=== PATIENT | male | born 1965 | race Caucasian/White ===

== ENCOUNTER 2020-10-11 10:13 | Outpatient (CLI) | payer OTHER, SELFPAY ==
--- NOTE | 2020-10-11 11:15 | NEURO_ITS ---
Impression: # Complains of left upper extremity weakness. # Bilateral mild Carpal Tunnel Syndrome. # Needle/EMG exam revealed left upper extremity proximal muscles with decreased motor unit potentials involving deltoid, triceps and biceps muscles ,but no fibs,or myotonia. #higher involvement needs to be ruled out.. Nerve Conduction Studies Anti Sensory Summary Table Stim Site NR Peak (ms) P-T Amp (?V) Site1 Site2 Delta-P (ms) Dist (cm) Marshal (m/s) Left Median Anti Sensory (2-3nd Digit) Wrist 3.2 27.9 Wrist 2-3nd Digit 3.2 14.0 44 Wrist 3.2 27.0 Wrist 2-3nd Digit 3.2 14.0 44 Right Median Anti Sensory (2-3nd Digit) Wrist 3.3 57.7 Wrist 2-3nd Digit 3.3 14.0 42 Wrist 3.3 25.9 Wrist 2-3nd Digit 3.3 14.0 42 Left Radial Anti Sensory (Base 1st Digit) Wrist 2.1 26.2 Wrist Base 1st Digit 2.1 0.0 Right Radial Anti Sensory (Base 1st Digit) Wrist 3.5 10.7 Wrist Base 1st Digit 3.5 0.0 Left Ulnar Anti Sensory (5th Digit) Wrist 2.5 29.9 Wrist 5th Digit 2.5 14.0 56 Right Ulnar Anti Sensory (5th Digit) Wrist 2.6 20.4 Wrist 5th Digit 2.6 14.0 54 Motor Summary Table Stim Site NR Onset (ms) O-P Amp (mV) Site1 Site2 Delta-0 (ms) Dist (cm) Marshal (m/s) Left Median Motor (Abd Poll Brev) Wrist 4.1 3.1 Elbow Wrist 5.0 29.0 58 Elbow 9.1 2.1 Right Median Motor (Abd Poll Brev) Wrist 4.5 2.7 Elbow Wrist 4.9 29.0 59 Elbow 9.4 2.6 Left Ulnar Motor (Abd Dig Minimi) Wrist 2.6 6.8 A Elbow Wrist 5.3 30.0 57 A Elbow 7.9 5.8 Right Ulnar Motor (Abd Dig Minimi) Wrist 2.7 6.8 A Elbow Wrist 5.3 31.0 58 A Elbow 8.0 6.1 F Wave Studies NR F-Lat (ms) L-R F-Lat (ms) Left Median (Mrkrs) (Abd Poll Brev) 28.98 0.40 Right Median (Mrkrs) (Abd Poll Brev) 29.38 0.40 Left Ulnar (Mrkrs) (Abd Dig Min) 29.99 0.24 Right Ulnar (Mrkrs) (Abd Dig Min) 29.74 0.24 EMG Side Muscle Nerve Root Ins Act Fibs Amp Dur Recrt Comment Right 1stDorInt Ulnar C8-T1 Nml Nml Nml Nml Nml Right Ext Indicis Radial (Post Int) C7-8 Nml Nml Nml Nml Nml Right Ext Digitorum Radial (Post Int) C7-8 Nml Nml Nml Nml Nml Right BrachioRad Radial C5-6 Nml Nml Nml Nml Nml Right PronatorTeres Median C6-7 Nml Nml Nml Nml Nml Right Abd Poll Brev Median C8-T1 Nml Nml Nml Nml Nml Left 1stDorInt Ulnar C8-T1 Nml Nml Nml Nml Nml Left Ext Indicis Radial (Post Int) C7-8 Nml Nml Nml Nml Nml Left Ext Digitorum Radial (Post Int) C7-8 Nml Nml Nml Nml Nml Left BrachioRad Radial C5-6 Nml Nml Nml >12ms Reduced Left PronatorTeres Median C6-7 Nml Nml Nml Nml Nml Left Abd Poll Brev Median C8-T1 Nml Nml Nml Nml Nml Left ABD Dig Min Ulnar C8-T1 Nml Nml Nml Nml Nml Left Biceps Musculocut C5-6 Nml Nml Nml >12ms Reduced Left Triceps Radial C6-7-8 Nml Nml Nml >12ms Reduced Left Deltoid Axillary C5-6 Nml Nml Nml >12ms Reduced MTDD
== END 2020-10-11 10:14 | disposition home or self-care (01) ==
PROVIDERS: Visit Provider Orthopaedic Surgery
DX: G56.03 Carpal tunnel syndrome, bilateral upper limbs (principal)
CPT/HCPCS: 95886; 95911

== ENCOUNTER 2020-10-19 06:41 | Outpatient (CLI) | payer OTHER, SELFPAY ==
--- NOTE | ~2020-10-19 | MR_ITS ---
EXAMINATION: MR cervical spine wo con DATE: 10/19/2020 08:02 INDICATION: Neck pain. TECHNIQUE: Magnetic resonance imaging (MRI) of the cervical spine was performed without intravenous c ontrast. Sequences included sagittal T2-weighted FSE, sagittal STIR FSE, sagittal T1-weighted FSE, ax ial MERGE, and axial T2-weighted FSE. COMPARISON: None FINDINGS: There is kyphosis of cervical spine. Vertebral body heights are normal. There is mildly dec reased disc height at C3-C4 and moderately decreased disc height at C4-C5. The spinal cord signal int ensity is normal. The following disc levels are specifically discussed: C2-C3: The disc does not extend beyond the endplate margin. There is mild bilateral uncovertebral petey nt osteoarthritis. There is severe right and mild left facet joint osteoarthritis. There is mild righ t neural foraminal stenosis. There is no central canal stenosis. C3-C4: The disc does not extend beyond the endplate margin. There is moderate bilateral uncovertebral joint osteoarthritis. There is mild right and severe left facet joint osteoarthritis. There is mild right and moderate left neural foraminal stenosis. There is mild central canal stenosis. C4-C5: The disc is bulging. There is severe bilateral uncovertebral joint osteoarthritis. There is mi ld right and moderate left facet joint osteoarthritis. There is moderate bilateral neural foraminal s tenosis. There is moderate central canal stenosis with ventral and dorsal indentation of spinal cord. C5-C6: The disc is bulging. There is mild bilateral uncovertebral joint osteoarthritis. There is no f acet joint osteoarthritis. There is no neural foraminal stenosis. There is mild central canal stenosi s. C6-C7: There is a central protrusion. There is mild bilateral uncovertebral joint osteoarthritis. The re is mild bilateral facet joint osteoarthritis. There is no neural foraminal stenosis. There is no c entral canal stenosis. C7-T1: There is a central extrusion. There is no uncovertebral joint osteoarthritis. There is severe right and moderate left facet joint osteoarthritis. There is no neural foraminal stenosis. There is n o central canal stenosis. IMPRESSION: 1. Moderate cervical spondylosis. Reviewed, dictated and finalized at location A. OR ASIC ENGINEER
== END 2020-10-19 06:42 | disposition home or self-care (01) ==
PROVIDERS: Visit Provider Orthopaedic Surgery
DX: M47.892 Other spondylosis, cervical region (principal)
CPT/HCPCS: 72141

== ENCOUNTER → 2023-08-09 08:31 | Outpatient (CLI) | payer OTHER, SELFPAY ==
--- NOTE | ~2023-08-09 | XR_ITS ---
XR lumbar spine min 4V 08/09/2023 08:59 Indication: Low back pain Procedure: 5 views lumbar spine Comparison: No prior studies for comparison. Findings: There is mild dextroscoliosis. Vertebral body heights are maintained. Pedicles intact. Ther e is disc narrowing at L4-5 and L5-S1. There is grade 1 spondylolisthesis at L5-S1. There is vacuum p henomena at L5-S1. No acute fracture or traumatic malalignment. There is facet hypertrophy at L4-5 an d L5-S1. Impression: 1: Moderate-severe lower lumbar spondylosis with dextroscoliosis. Reviewed, dictated and finalized at location A. Impression: 1: Moderate-severe lower lumbar spondylosis with dextroscoliosis.
== END ==
PROVIDERS: PCP Chiropractor; Visit Provider Chiropractor
DX: M47.896 Other spondylosis, lumbar region (principal)
CPT/HCPCS: 72110

== ENCOUNTER 2025-02-23 07:36 | Outpatient (CLI) | payer MEDICARE, OTHER, SELFPAY ==
--- NOTE | ~2025-02-23 | CT_ITS ---
CT of the Abdomen and Pelvis: Indication: Positive colorectal cancer screening test Technique: 2.5 mm axial scans were obtained through the abdomen and pelvis following intravenous adm inistration of 100 cc of Omnipaque 350. Dose reduction technique was used on this scan by utilizing a utomated exposure control and iterative reconstruction technique. The dose-length product (DLP) was 1 040.16 mGy-cm. Findings: Scans through the lung bases are unremarkable. The liver, spleen, pancreas, gallbladder, adrenals and kidneys are within normal limits. No evidence of aortic aneurysm. No lymphadenopathy. No bowel obstruction. Questionable 2.4 cm polypoid mass intraluminally at the rectum versus adherent stool (sagittal image [id number]), axial image 155). There is mild haziness in the central mesentery with shotty lymph nodes, compatible with mesenteric panniculitis. Images through the pelvis were performed. Urinary bladder unremarkable. Prostate gland minimally prom inent. No ascites. Bilateral L5 pars interarticularis defects are present, with minimal grade 1 anterolisthesis and adva nced degenerative spondylitic change at L5-S1. Impression: Questionable 2.4 cm polypoid mass in the rectum versus adherent stool, as detailed above. Colonoscopy advised with direct inspection. Mesenteric panniculitis. Reviewed, dictated and finalized at location . Impression: Questionable 2.4 cm polypoid mass in the rectum versus adherent stool, as vivek led above. Colonoscopy advised with direct inspection. Mesenteric panniculitis.
--- OUTSIDE RECORDS SUMMARY | 2025-02-23 07:42 | XMS_ITS | Clinical Summary ---
Author Organization [facility] Address [address] [place] [address] Care Team Providers Care Home Organizer Name Role Phone Unavailable Primary Care Provider Unavailabl e Source Comments [facility] [facility],non-owned Affiliates and Associated Physician Practices is amultiple site organization consisting of ambulatory clinics and hospital sitesin [place], [place], [place] and [place]. This disclosure is being madepursuant to the Care Everywhere program and may not contain all information available regarding this patient. Last updated 18.[facility] [employer] Immunizations Name Administration Dates Next Due INFLUENZA VACCINE, QUADR. (F LUZONE; FLULAVAL; FLUARIX; AFLURIA QUADRIVALENT; 6MO+), 0.5 ML (IIV4) 08/07/2020 Social History Tobacco Use Types Packs/Day Years Used Date Smoking Tobacco: Never Assessed Sex and Gender Information Value Date Recorded Sex Assigned at Not on file Gender Identity Not on file Sexual Orientation Not on file Plan of Treatment Health Maintenance Due Date Last Done Comments COLOGUARD (AGES 45-75) - COL ON CA SCREENING 1966 COLON MONITORING 1966 COLONOSCOPY - COLON CA SCREENING 1966 CT COLONOGRAPHY - COLON CA SCREENING 1966 Colorectal Cancer Screening 1966 FIT - COLON CA SCREENING 1966 FLEX SIG - COLON CA SCREENING 1966 LIPID TESTING 1966 HIV SCREENING 1981 HEPATITIS C SCREENING 08/24/1984 DTAP/TDAP/TD VACCINES (1 - Tdap) 1985 HEPATITIS B VACCINE (1 of 3 - 19+ 3-dose series) 1985 PNEUMOCOCCAL VACCINE 50+ (1 of 1 - PCV) 2016 ZOSTER VACCINE (1 of 2) 2016 COVID-19 VACCINE (2023-2 5 season) 2024 DEPRESSION SCREENING 11/17/2024 INFLUENZA VACCINE (Season Ended) 2025 08/07/20 20 HIB VACCINE Aged Out No longer eligi ble based on patient's age to complete this topic HPV VACCINE Aged Out No longer eligi ble based on patient's age to complete this topic MENINGOCOCCAL (Group B) VACC INE SHARED DECISION-MAKING Aged Out No longer eligibl e based on patient's age to complete this topic MENINGOCOCCAL GROUPS A/C/Y/W VACCINE Aged Out No longer eligible b ased on patient's age to complete this topic PNEUMOCOCCAL VACCINE Aged Out No long er eligible based on patient's age to complete this topic
--- OUTSIDE RECORDS SUMMARY | 2025-02-23 07:42 | XMS_ITS ---
Author Organization [facility], [facility] Address [address] [place] [address] [address] [place] [address] Care Team Providers Care Genetic Physician Name Role Phone Mynor BARRIOS MD, [facility] Primary Care Provider Un available Tarsha Pennington Unavailable [phone] scan Encounters Encounter Location Date Provider Diagnosis [facility], [address] [place] [address] 02/15/2025 Tarsha Pennington Plan Of Treatment No Information Progress Notes * Mynor ARIZMENDI LDOB: [birth year] (59 yo M)Acc No.[id number]:02/15/2025 Patient: Brayden MALCOLMMynor :1965 A ge:59 Y S ex:Male Address:[facility] [address], [place], [address] * true * Date: Generated for Printi ng/Faxing/eTransmitting on: 0 02/23/2025 07:41 AM CDT
--- OUTSIDE RECORDS SUMMARY | 2025-02-23 07:42 | XMS_ITS ---
Author Organization [facility] Address [address] [place] [address] Dr. [address] [place] [address] Care Team Providers Care Garage Supervisor Name Role Phone Mynor BARRIOS MD, [facility] Primary Care Provider Un available Tarsha Pennington Unavailable [phone] Allergies No Known Allergies REASON FOR VISIT Procedure Consult: Colonoscopy, Postiive Cologuard Medications Medication SIG (Take, Route, Frequency, Duration) Notes Start Date End Date Status Zoloft Active Memantine HCl-Donepezil HCl Active Losartan Potassium-HCTZ Active metFORMIN HCl Active OTC/Vitamins Vit D Active Social History Tobacco Use: Social History Observation Description Date Details (start date - stop date) Never Smoker NA - NA Tobacco Control (Standard) Question Answer Notes Tobacco use: Nonsmoker Problems Problem Type SNOMED Code ICD Code Onset Dates Problem Status W/U Status Risk Notes Problem Alzheimer's disease (55965423) Alzheimers disease with early onset (G30.0) Active confirmed Encounters Encounter Location Date Provider Diagnosis [facility] [address] [place] [address] [address]. [address] [place] [address] 02/11/2025 Tarsha Pennington Positive colorectal cancer screening using Cologuard test R19.5 and Alzheimers disease with early onset G30.0 Assessments Encounter Date Diagnosis (ICD Code) Assessment Notes Treatment Notes Treatment Clinical Notes Section Notes 02/11/2025 Positive colorectal cancer screening using Cologuard test (ICD-10 - R19.5) Positive Cologuard test. Denies alarm symptoms. No family history of colon cancer or colon polyps. Discussed positive Cologuard with patient and alternatives for further evaluation. They have decided to complete a CT scan to rule out an obvious colon malignancy. Discussed that CT scan does not have the same sensitivity or accuracy to detect colon polyps. However, they have decided that the patient will not undergo colonscopy or CT colonography related to sedation risk and completing colonoscopy prep. 02/11/2025 Alzheimers disease with early onset (ICD-10 - G30.0) Continue to follow with Dr. Harvey's office. 02/11/2025 Other Mynor and his family verbalized understanding of the plan and recommendations. All questions answered. The patient may call our office for new GI complaints or alarm symptoms as needed. Plan Of Treatment Treatment Notes Assessment Notes Positive colorectal cancer s creening using Cologuard test Discussed positive Cologuard with patien t and alternatives for further evaluation. They have decided to complete a CT scan to rule out an obvious colon malignancy. Discussed that CT scan does not have the same sensitivity or accuracy to detect colon polyps. However, they have decided that the patient will not undergo colonscopy or CT colonography related to sedation risk and completing colonoscopy prep. Alzheimers disease with early onset Cont inue to follow with Dr. Harvey's office. Other Mynor and his fami ly verbalized understanding of the plan and recommendations. All questions answered. The patient may call our office for new GI complaints or alarm symptoms as needed. Pending Test Test Name Order Date CT Abdomen/Pelvis w/ IV & Oral Contrast 02/11/2025 Next Appt Details Follow Up: prn, Reason: Progress Notes * Mynor ARIZMENDI LDOB: [birth year] (59 yo M)Acc No.[id number]:02/11/2025 Patient: Mynor PICKARD Provider: MANJIT Mcdowell :1965 A ge:59 Y S ex:Male Date:02/11/2025 Address:[facility] [address], [facility] Pcp:Maribel Lowe MD, Subjective: * Chief Complaints: * P rocedure Consult: ColonoscopyPostiive Cologuard * HPI: H PI: Mynor Arizmendi is a 59-year-old male who presents for new patient office visit. He is accompanied by his (NAY) and daughter. He has a medical history of early onset Alzheimer's, diabetes, and hypertension. His PCP ordered a Cologuard and results were positive. His is concerned about sedation for the procedure as he woke up combative from a neck fusion a few years ago. She states completing the Cologuard was a challenge and feels that the colonoscopy prep will also be difficult for him to complete. He is having daily formed bowel movements. He has rare diarrhea. He denies abdominal pain, constipation, bloating, hematochezia, melena, mucus in stool, rectal pain or pressure. He denies upper GI symptoms of nausea, vomiting, dysphagia and acid reflux. His weight and appetite are stable. He continues to follow-up with Dr. Harvey's office for Alzheimer's. He continues to get routine MRI and PET scans at [place]. * ROS: G I Bleeding: Melena N o. H ematochezia N o. H ematemesis?No. A nemia N o. G I-Stomach: Nausea/Emesis N o. P ain N o. P UD N o.?Anorexia N o. G I-Esophageal: Dysphagia N o. O dynophagia N o. C hest Pain?No. G ER Sx N o. G I-Liver/GB: Jaundice N o. H epatitis N o. G allstones N o. P ancreatitis N o. G I-Colon: Colitis/IBS N o. D iarrhea N o. C onstipation?No. H emorrhoids N o. G eneral/Constitutional: Fever N o. C hills N o. W eight Loss N o.? S kin: Rash N o. P ruritus N o. I cterus N o. P hotosensitivity N o. E NT: Diplopia N o. V isual Loss N o. T innitus N o. V ertigo N o. D eafness N o. P oor Dentition N o. H ematology: Easy Bruising N o. H emophilia N o. H ematologic Malignancy N o. L ymphadenopathy N o. H istory of Petechia N o. A nemia?No. C ardiovascular: Palpitations N o. S yncope N o. P ND N o.?PALOMINO N o. O rthopnea N o. C hest Pain N o. R espiratory: Cough N o. S putum Production N o. H emoptysis?No. W heezing N o. T B N o. S OB N o. N eurologic: Stroke N o. S eizure Disorder N o. T remor N o. P aralysis N o. S yncope N o. G enitourinary: Dysuria N o. P olyuria N o. I ncontinence N o. R enal Failure N o. H ematuria N o. M usculoskeletal: Joint Pain N o. S welling N o. S tiffness N o. M uscle Weakness N o. M yalgia N o. E ndocrine: Thyroid Disease N o. D iabetes N o. P olyphagia?No. P olydipsia N o. P sychiatric: Delusions N o. H allucinations N o. S uicidal Ideations N o. A llergy/Immunology: Hives N o. C hronic Sinusitis N o. H istory of Anaphylaxis N o. * Medical History: * Surgical History: N yessi Fusion * Hospitalization/Major Diagno stic Procedure: D enies Past Hospitalization * Family History: N on-Contributory. Patient denies family history of colon cancer or colon polyps. * Social History: T obacco Use: T obacco Control (Standard) T obacco use: N onsmoker D rugs/Alcohol: D o you Drink Alcohol?: No. Drugs: No. Do you Smoke Marijuana?: No. * Medications: T akingZoloft Memantine HCl-Donepezil HCl Losartan Potassium-HCTZ metFORMIN HCl OTC/Vitamins , Notes to Pharmacist: Vit DMedication List reviewed and reconciled with the patientTaking Zoloft Taking Memantine HCl-Donepezil HCl Taking Losartan Potassium-HCTZ Taking metFORMIN HCl Taking OTC/Vitamins , Notes to Pharmacist: Vit DMedication List reviewed and reconciled with the patient * Allergies: N .K.D.A.no[Allergies Verified] Objective: * Vitals: * Examination: P hysical Examination: GENERAL: A ppears stated age, in no apparent distress, aphasia (chronic per ). SKIN: N o rash, ecchymoses, petechial, or telangiectasia.? HEENT: N ormocephalic, EOMI, Nasal & buccal mucosa clear.? NECK: S upple without masses., Normal Range of Motion, No jugular venous distention. CARDIAC: R RR without murmur, gallop, or rub. PULMONARY: C lear to auscultation and percussion bilaterally. ABDOMEN: B S positive, soft, non-tender, No masses, organomegaly, rebound, or ascites. EXTREMITIES: N o cyanosis, clubbing, or edema. NEUROLOGIC: A lert and oriented x3, No asterixis, Nonfocal examination. C QM Exceptions: Influenza Vaccine not administered: R bev: M edical Reason Pneumococcal Vaccine not administered: Yari pablo: Russell edical Reason TD or Tdap vaccine not administered R bev: M edical reason Assessment: * Assessment: 1. P ositive colorectal cancer screening using Cologuard test - R19.5 (Primary) ?Notes :Positive Cologuard test. Denies alarm symptoms. No family history of colon cancer or colon polyps. 2 . A lzheimers disease with early onset - G30.0 Plan: * Treatment: 2. A lzheimers disease with early onset Notes: Continue to follow with Dr. Harvey's office. 3. O thers Notes: Mynor and his family verbalized understanding of the plan and recommendations. All questions answered. The patient may call our office for new GI complaints or alarm symptoms as needed. ? * Procedure Codes: 9 9203 UNDERGROUND MINER Office Visit, New Pt., Level 3 * Follow Up: p rn * Images: * Sign off status: Completed true * Provider: MANJIT Mcdowell Date: 0 02/11/2025 Generated for Kun tejeda/Jad/Maria Guadalupe on: 0 02/23/2025 07:41 AM CDT
--- OUTSIDE RECORDS SUMMARY | 2025-02-23 07:42 | XMS_ITS ---
Author Organization [facility], [facility] Address [address] [place] [address] [address]. [address] [place] [address] Care Team Providers Care Administrative Support Clerk Name Role Phone Mynor BARRIOS MD, [facility] Primary Care Provider Un available Tarsha Pennington Unavailable [phone] REASON FOR VISIT PS: CT Auth Encounters Encounter Location Date Provider Diagnosis [facility], [address] [place] [address] 02/17/2025 Tarsha Pennington Plan Of Treatment No Information Progress Notes * Mynor ARIZMENDI LDOB: [birth year] (59 yo M)Acc No.[id number]:02/17/2025 Patient: Brayden MALCOLMMynor :1965 A ge:59 Y S ex:Male Address:[facility] [address], [place], [address] * true * Date: Generated for Printi ng/Faxing/eTransmitting on: 0 02/23/2025 07:42 AM CDT
--- OUTSIDE RECORDS SUMMARY | 2025-02-23 07:42 | XMS_ITS | Patient Health Record ---
Author Organization [employer], [facility] Address [address] [place] [address] [place] [address] Care Team Providers Care Data Warehousing Engineer Name Role Phone Mynor BARRIOS MD, [facility] Primary Care Provider Un available Tarsha Pennington Unavailable [phone] Allergies No Known Allergies Reason For Referral No Information Medications Medication SIG (Take, Route, Frequency, Duration) Notes Start Date End Date Status Zoloft Active Memantine HCl-Donepezil HCl Active Losartan Potassium-HCTZ Active metFORMIN HCl Active OTC/Vitamins Vit D Active Immunizations Vaccine Route Administration Date Status Comme nts Influenza Vaccination Unknown 08/17/2024 Administered Zoster Unknown 05/31/2024 Administered Zoster Unknown 08/31/2024 Administered Social History Tobacco Use: Social History Observation Description Date Details (start date - stop date) Never Smoker NA - NA Tobacco Control (Standard) Question Answer Notes Tobacco use: Nonsmoker Problems Problem Type SNOMED Code ICD Code Onset Dates Problem Status W/U Status Risk Notes Problem Alzheimer's disease (07130288) Alzheimers disease with early onset (G30.0) Active confirmed Encounters Encounter Location Date Provider Diagnosis [facility], [address] [place] [address] 02/11/2025 Tarsha Pennington Positive colorectal cancer screening using Cologuard test R19.5 and Alzheimers disease with early onset G30.0 [facility] [address] [place] [address] [place] [address] 01/07/2025 Tarsha Pennington [facility], [address] [place] [address] 02/15/2025 Tarsha Pennington [facility], [facility] [address] [place] [address] 02/17/2025 Tarsha Pennington Assessments Encounter Date Diagnosis (ICD Code) Assessment Notes Treatment Notes Treatment Clinical Notes Section Notes 02/11/2025 Alzheimers disease with early onset (ICD-10 - G30.0) Continue to follow with Dr. Harvey's office. 02/11/2025 Positive colorectal cancer screening using Cologuard [...] sedation risk and completing colonoscopy prep. 02/11/2025 Other Mynor and his family verbalized understanding of the plan and recommendations. All questions answered. The patient may call our office for new GI complaints or alarm symptoms as needed. Plan Of Treatment Pending Test Test Name Order Date CT Abdomen/Pelvis w/ IV & Oral Contrast 02/11/2025 Insurance Providers Payer Name Payer Address Payer Phone Subscriber Number Group Number Insured Name Patient Relationship to Insured Coverage Start Date Coverage End Date Medicare E2 [address] [address] [place] [address] [id number] Mynor Arizmendi Self - patient is the insured [employer] Nap E2 [address] [place] [address] [id number] Mynor Arizmendi Self - patient is the insured Medical (General) History Medical History History ICD Code Alzheimers Diabetes Hypertension Surgical History Surgery Date(Month/Year) Neck Fusion
[2025-02-23 08:13] LABS: Estimated Glomerular Filt Rate > 60
== END 2025-02-23 07:37 | disposition home or self-care (01) ==
PROVIDERS: PCP Chiropractor
DX: R19.5 Other fecal abnormalities (principal); K65.4 Sclerosing mesenteritis
CPT/HCPCS: 74177; Q9967